=== PATIENT | female | born 1990 | race Caucasian/White ===

== ENCOUNTER 2022-03-28 16:32 | Inpatient (IN) | payer MEDICAID ==
[~2022-03-28] VITALS: Ht 170.2 cm; Wt 81.4 kg
[2022-03-29] VITALS (41 sets, daily range): BP systolic 84–119; BP diastolic 51–73; PULSE 49–85; TEMP 97.7–98.8
[2022-03-29] MEDS ORDERED: PRENATAL (07:11)
[2022-03-29 07:57] LABS: BASO # 0.1 K/mm3 (0.0-0.2); BASO % 0.4 % (0.0-2.0); EOS # 0.1 K/mm3 (0.0-0.7); EOS % 1.1 % (0.0-4.0); GRAN # 8.1 K/mm3 (1.4-6.5); GRAN % 70.6 % (42.2-75.2); HEMATOCRIT 38.1 % (37.0-47.0); HEMOGLOBIN 13.2 g/dl (12.5-16.0); LYMPH # 2.3 K/mm3 (1.2-3.4); LYMPH % 20.4 % (20.0-51.0); MEAN CELL VOLUME 98 fl (80.0-100.0); MEAN CORPUSCULAR HEMOGLOBIN 34 pg (27-31); MEAN CORPUSCULAR HGB CONC 35 g/dl (33.0-37.0); MEAN PLATELET VOLUME 12.4 fl (7.4-10.4); MONO # 0.8 K/mm3 (0.1-0.6); MONO % 6.7 % (1.7-9.3); PLATELET COUNT 150 K/mm3 (130-400); REDCELL DISTRIBUTION WIDTH-CV 13.1 % (11.5-14.5)
--- NOTE | 2022-03-29 08:10 | NUR ---
31 YO AT 40.1 TO LR 5 FOR ELECTIVE INDUCTION OF LABOR. PT DENIES ANY CTXS, LEAKING FLUID OR VAGINAL BLEEDING AND REPORTS GOOD ACTIVITY. INDUCTION PROCESS DISCUSSED
[2022-03-29 08:20] LABS: TRICYCLIC ANTIDEPRESS URINE NEGATIVE
--- NOTE | 2022-03-29 10:49 | NUR ---
1035 - RICCARDO CARPENTER INSPECTOR TO ROOM, PT UP ON SIDE OF BED IN SITTING POSITION 1039 - SINGLE SHOT 1045 - PT DOWN, SLIGHT LEFT TILT AFTER EPIDURAL
--- NOTE | 2022-03-29 11:03 | NUR ---
PT UNCOMFORTBALE, REQUESTING EPIDURAL, LR BOLUS STARTED. RICCARDO SURVEILLANCE SYSTEMS ANALYST NOTIFIED PT REQUESTING EPIDURAL
--- NOTE | 2022-03-29 13:56 | NUR ---
1335 - RN PHONED DR MCGOWAN WITH PT UPDATE
--- NOTE | 2022-03-29 13:57 | NUR ---
1220 - DR MCGOWAN CALLED RN, UPDATE ON PT STATUS
--- NOTE | 2022-03-29 15:39 | NUR ---
[address] MCGOWAN, NOTIFIED PT /-1
--- NOTE | 2022-03-29 17:17 | NUR ---
1548 DONNA SAMANIEGO'Steven WITH 150CC URINE. PT FEELING URGE TO PUSH, DR MCGOWAN DELIVERING IN ANOTHER ROOM, PT TOLERATING WELL AND BREATHING THROUGH CTXS
--- NOTE | 2022-03-29 17:20 | NUR ---
1605 - DR MCGOWAN TO ROOM, PT UP IN FOOT PEDALS AND PERINEAL PREP DONE 1607 - PUSHES WITH CTX, DELIVERY OF VIABLE MALE INFANT. SPONTANEOUS CRY PRESENT, TO MOTHERS ABD
[2022-03-30 00:10] VITALS: BP 112/80; PULSE 71; TEMP 98.2
[2022-03-30] MEDS ORDERED: IBU600 MG PO (08:31)
[2022-03-30 08:40] VITALS: BP 113/79; PULSE 66; TEMP 97.5
--- NOTE | 2022-03-30 09:34 | NUR ---
Initial visit; Patient thanked Jacquard Loom Heddles Tier for offering congratulations and God's blessings to her and her family. Noemi states she has two girls at home who are very excited to help with the care of their only brother. Jacquard Loom Heddles Tier thanked mom for choosing [facility].
--- NOTE | 2022-03-30 10:35 | NUR ---
Medical Equipment Repairer met with patient in response to consult for positive urine drug screen. Patient lives in [place] with her boyfriend and father of baby, Oral (ph#[phone]). Patient has two other children, age 7 and 9. Patient reports she shares custody of her 7 year old, who is currently in [place] with her father. Patient advised her 9 year old lives with them. Oral has two children of his own, age 18 and 16. SW explained role and patient immediately addressed positive UDS and marijuana use. Patient states she quit using marijuana when she found out she was and they moved to [place] in July of 2021. Patient became tearful and advised she was very sick around 35-36 weeks with vomiting and diarrhea so she broke down and ate a baked item with marijuana in it that Oral brought home. Patient states she does not want people to think she is a bad mom. SW offered emotional support and encouragement. Patient intends to continue to abstain from marijuana and advised Dr. Willis instructed her to wait a week before . Patient advised she plans to "pump and dump" for a week. Patient states she has formula and bottles to use in the meantime. SW advised that a report would be made to [facility] as SW is a mandated reported. Patient is tearful but expressed understanding. Patient advised when they see her name, they will probably come out and visit because she had a recent interaction with [facility] for her 9 year old daughter who has behavioral issues. Patient stated she had just let the dog outside when unknown to her, her daughter "packed her shit and started walking down the highway". Patient advised [facility] and police did a home assessment. Patient verbalized she just doesn't want anyone to take her baby. SW again offered emotional support. Patient stated Oral is very supportive but she doesn't have a lot of friends in the area, as she recently moved. Patient advised she has all supplies needed for baby and also purchased an electric breastpump. Zach advised she is set up with [facility] and also has support services through [facility]. SW also offered [facility] resource guide, which she stated she received from [facility] recently. Patient is currently employed by [employer] and was working from home, however patient is deciding if she wants to return to work or not. Patient advised she is a and is now receiving [place] benefits. Patient has no additional questions or concerns at this time. SW spoke with RN about the above information. SW made report to Child Protective Services (intake #[id number]).
[2022-03-30 13:30] VITALS: BP 102/72; PULSE 68
--- NOTE | 2022-03-30 17:47 | NUR ---
1720DISCHARGE INSTRUCTIONS REVIEWED WITH PATIENT. PATIENT VERBALIZED UNDERSTANDING. WAITING ON BOYFRIEND TO PICK HER UP TO GO HOME.
--- NOTE | 2022-03-30 17:56 | NUR ---
1755ALL PERSONAL BELONGINGS GATHERED FROM PATIENT ROOM. PATIENT LEFT AMBULATORY AND IN NO APPARENT DISTRESS. PATIENT ACCOMPANIED BY SIGNIFICANT OTHER, CHILD, AND NURSING STAFF.
--- NOTE | 2022-04-03 10:48 | NUR ---
Infant cord blood results received and were negative.
== END 2022-03-30 17:55 | disposition home or self-care (01) | DRG 806 ==
LOC: OB 03-29 06:00 → LDR 03-29 06:00 → OB 03-29 21:00
PROVIDERS: ADMIT Obstetrics & Gynecology
PROC: 10E0XZZ Delivery of Products of Conception, External Approach (ICD-10-PCS; principal; 2022-03-29)
PROC: 0UQMXZZ Repair Vulva, External Approach (ICD-10-PCS; 2022-03-29)
PROC: 3E033VJ Introduction of Other Hormone into Peripheral Vein, Percutaneous Approach (ICD-10-PCS; 2022-03-29)
DX: O48.0 Post-term pregnancy (principal); O99.324 Drug use complicating childbirth; Z37.0 Single live birth; O99.334 Smoking (tobacco) complicating childbirth; F17.200 Nicotine dependence, unspecified, uncomplicated; F12.90 Cannabis use, unspecified, uncomplicated; Z3A.40 40 weeks gestation of pregnancy
CPT/HCPCS: J2590; J2795; J7120

== ENCOUNTER 2024-06-08 12:19 | Emergency (ER) | payer MEDICAID ==
[~2024-06-08] VITALS: Ht 170.2 cm; Wt 71.4 kg
[~2024-06-08 12:19] MED LIST: IBU600 MG PO; PRENATAL
[2024-06-08 12:26] VITALS: BP 122/79; TEMP 98
[2024-06-08] MEDS ORDERED: NORCO 325 MG-51 TAB PO (12:55)
[2024-06-08 15:38] VITALS: PULSE 78
== END 2024-06-08 15:35 | disposition home or self-care (01) ==
LOC: COL.ER 12:19
DX: R07.81 Pleurodynia (principal); Z91.040 Latex allergy status